=== PATIENT | male | born 1960 | race Two or more races ===

== ENCOUNTER 2022-03-16 06:14 | Day surgery (SDC) | payer OTHER ==
[~2022-03-16] VITALS: Ht 182.9 cm; Wt 93.9 kg
[~2022-03-16 06:14] MED LIST: CYMBALTA60 MG PO; ULTRAM50 MG PO; XANAX XR2 MG PO
[2022-03-16] MEDS ORDERED: CIPROFLOXACIN750 MG PO (16:21)
[2022-03-16] MEDS ORDERED: ASA325 M1 PO (16:21)
[2022-03-16] MEDS ORDERED: ULTRACET PO (16:21)
== END 2022-03-16 22:33 | disposition home or self-care (01) ==
LOC: CIR.AMB 06:14 → O/R 06:14 → SURH 06:14 → EDSTATUS 09:30 → SURH 09:30 → O/R 14:34 → SURH 22:33 → CIR.AMB 22:33
PROVIDERS: ATTEND Orthopaedic Surgery
DX: S86.011A Strain of right Achilles tendon, initial encounter (principal); S86.019A Strain of unspecified Achilles tendon, initial encounter; S90.01XA Contusion of right ankle, initial encounter; Z20.822 Contact with and (suspected) exposure to COVID-19
CPT/HCPCS: 27654; 28002; L8699

== ENCOUNTER 2024-01-10 14:35 | Day surgery (SDC) | payer OTHER ==
[2024-01-09 12:59] LABS: HEMATOCRIT 45.2 % (39.0-48.0); HEMOGLOBIN 15.2 g/dL (13-16.00); MEAN CELL VOLUME 95.5 fL (80.0-100.00); MEAN CORPUSCULAR HEMOGLOBIN 32.1 pg (27.00-32.0); MEAN CORPUSCULAR HGB CONC 33.6 g/dl (32.0-36.0); PLATELET COUNT 411 K/uL (150-450); RED BLOOD COUNT 4.73 M/uL (4.00-6.00); RED CELL DISTRIBUTION WIDTH 14.2 % (11.5-14.5)
[2024-01-09 13:10] LABS: PH,URINE 5.5 (5.0-8.0); URINE APPEARANCE Clear; URINE BILIRRUBIN Negative (NEGATIVE); URINE BLOOD Negative; URINE COLOR Yellow; URINE GLUCOSE Negative (NEGATIVE); URINE LEUKOCYTE Negative; URINE NITRATE Negative; URINE PROTEIN Negative (NEGATIVE); URINE UROBILINOGEN 0.2 E.U./dl
[2024-01-09 13:14] LABS: URINE EPITHELIAL CELLS 1.8 uL (0.0-38.8); URINE RBC 3.5 uL (0.0-20.8)
[2024-01-09 13:26] LABS: INR < 0.93; PROTHROMBIN TIME 9.8 SECONDS (9.0-11.5)
[2024-01-09 13:32] LABS: ALBUMIN 4.4 gm/dL (3.4-5.0); BILIRUBIN TOTAL 0.41 mg/dL (0.3-1.2); CALCIUM 9.5 mg/dL (8.5-10.1); CREATININE SERUM 0.78 mg/dL (0.70-1.30); GFR 100.85; GLOBULINA 2.8 G/DL (2.4-3.5); POTASSIUM 5.18 mEq/L (3.5-5.1); TOTAL PROTEIN 7.2 gm/dL (6.4-8.2)
[2024-01-09 13:44] LABS: URINE BACTERIA 2.5 uL (0.0-1933); URINE WBC 1.6 uL (0.0-23.2)
[~2024-01-10 14:35] MED LIST changes: +ALPRAZOLAM ODT1 MG; +ASA325 M1 PO; +CIPROFLOXACIN750 MG PO; +NAPROXEN500 MG; +ULTRACET PO
[2024-01-10] MEDS ORDERED: POVIDONE-IODINE 3 EA MED..SWAB TOP ONE (14:56)
[2024-01-10] MEDS ORDERED: CEFAZOLIN SODIUM 1,000 MG VIAL ONE (14:59)
[2024-01-10] MEDS ORDERED: SUGAMMADEX SODIUM 200 MG/2 ML VIAL IV ONE ×2 (16:05→16:15)
[2024-01-10] MEDS ORDERED: CEFAZOLIN SODIUM 1,000 MG VIAL IV ONE (16:15)
[2024-01-10] MEDS ORDERED: POVIDONE-IODINE 0.75 OZ PACKET TOP ONE (16:15)
[2024-01-10] MEDS ORDERED: ISOPROPYL ALCOHOL 30 ML OUNCE TOP ONE (16:15)
[2024-01-10] MEDS ORDERED: METHYLPREDNISOLONE ACETATE 80 MG/ML VIAL ONE (16:21)
[2024-01-10] MEDS ORDERED: LIDOCAINE HCL 1% 200MG/20ML VIAL IJ ONE (16:22)
[2024-01-10] MEDS ORDERED: BUPIVACAINE HCL/PF 0.5% 30ML ML ONE (16:22)
[2024-01-10] MEDS ORDERED: DUI500 PO (16:41)
[2024-01-10] MEDS ORDERED: ALEVE220 M1 PO (16:41)
[2024-01-10] MEDS ORDERED: PERCOCET 5-3251 EACH PO (16:41)
[2024-01-10] MEDS ORDERED: METHYLPREDNISOLONE ACETATE 80 MG/ML VIAL IM ONE (17:00)
[2024-01-10] MEDS ORDERED: LIDOCAINE HCL 100 MG/10ML VIAL IJ ONE (17:00)
[2024-01-10] MEDS ORDERED: BUPIVACAINE HCL 30 ML VIAL IJ ONE (17:00)
== END 2024-01-10 18:00 | disposition home or self-care (01) ==
LOC: O/R 14:35 → SURH 14:35 → CIR.AMB 14:35 → O/R 18:00 → CIR.AMB 18:00 → SURH 01-09 11:15 → EDSTATUS 01-09 18:00
PROVIDERS: ATTEND Orthopaedic Surgery
DX: S52.532A Colles' fracture of left radius, initial encounter for closed fracture (principal); S52.692A Other fracture of lower end of left ulna, initial encounter for closed fracture
CPT/HCPCS: 25609; 20902; L8699